=== PATIENT | male | born 1970 | race Caucasian/White ===

== ENCOUNTER 2018-12-29 12:16 | Emergency (ER) | payer MEDICAID ==
[~2018-12-29] VITALS: Ht 172.7 cm; Wt 79.0 kg
[2018-12-29 12:38] VITALS: BP 122/73
== END 2018-12-29 13:58 | disposition home or self-care (01) ==
LOC: ED 13:55
DX: B35.1 Tinea unguium (principal)
CPT/HCPCS: 99283

== ENCOUNTER 2020-11-25 17:51 | Emergency (ER) | payer MEDICAID, OTHER ==
[~2020-11-25] VITALS: Ht 172.7 cm; Wt 82.1 kg
[2020-11-25] MEDS ORDERED: SODIUM CHLORIDE FLUSH 10ML SYR IVF ONE (18:30)
[2020-11-25] MEDS ORDERED: MORPHINE SULFATE 4 MG/ML, 1ML IVPush PRN (18:30)
[2020-11-25] MEDS ORDERED: ONDANSETRON 2MG/ML, 2ML IVPush ONE (18:30)
[2020-11-25] MEDS ORDERED: ONDANSETRON 2MG/ML, 2ML ONE (18:41)
[2020-11-25] MEDS ORDERED: MORPHINE SULFATE 4 MG/ML, 1ML ONE (18:42)
[2020-11-25 18:49] LABS: BASOPHILS % (AUTO) 1 % (0-1); EOSINOPHILS % (AUTO) 4 % (1-7); LYMPHOCYTES % (AUTO) 32 % (22-44); MEAN CORPUSCULAR HEMOGLOBIN 32.6 pg (27.5-34.5); MEAN CORPUSCULAR HGB CONC 34.4 g/dL (33.2-36.2); MEAN PLATELET VOLUME 6.5 fL (7.4-10.4); MONOCYTES % (AUTO) 8 % (2-9); NEUTROPHILS % (AUTO) 56 % (42-75); PLATELET COUNT 246 x10^3/uL (130-400); RED BLOOD COUNT 4.24 x10^6/uL (4.38-5.82); RED CELL DISTRIBUTION WIDTH 13.7 % (9.4-14.8)
[2020-11-25 18:50] LABS: MD NO
[2020-11-25 19:00] LABS: ANION GAP 4 mmol/L (5-15); CALCIUM 8.4 mg/dL (8.5-10.1); CHLORIDE 105 mmol/L (98-107); CREATININE 0.89 mg/dL (0.7-1.3)
[2020-11-25 19:01] LABS: ALANINE AMINOTRANSFERASE 63 U/L (12-78); ALBUMIN 3.1 g/dL (3.4-5.0)
[2020-11-25 19:05] LABS: ALKALINE PHOSPHATASE 79 U/L (45-117); BILIRUBIN,TOTAL 0.2 mg/dL (0.2-1.0); TOTAL PROTEIN 6.4 g/dL (6.4-8.2); TROPONIN I < 0.015 ng/mL (0.000-0.045)
[2020-11-25 19:27] VITALS: BP 113/62
--- NOTE | 2020-11-25 19:28 | NUR ---
pt states at this time morphine did not help with pain. provider made aware.
[2020-11-25] MEDS ORDERED: KETOROLAC 30 MG/1 ML IVPush ONE (19:30)
[2020-11-25] MEDS ORDERED: KETOROLAC 30 MG/1 ML ONE (19:40)
[2020-11-25] MEDS ORDERED: APIXABAN 5 MG TABLET ONE (19:52)
[2020-11-25] MEDS ORDERED: MAALOX/HYOSCYAMINE/LIDOCAINE 45 ML BTL ONE (19:52)
[2020-11-25] MEDS ORDERED: MAALOX/HYOSCYAMINE/LIDOCAINE 45 ML BTL PO ONE (20:00)
[2020-11-25] MEDS ORDERED: APIXABAN 5 MG TABLET PO ONE (20:00)
== END 2020-11-25 20:27 | disposition home or self-care (01) ==
LOC: ED 20:20
DX: K29.00 Acute gastritis without bleeding (principal); R07.89 Other chest pain; Z76.0 Encounter for issue of repeat prescription; F17.210 Nicotine dependence, cigarettes, uncomplicated; I10 Essential (primary) hypertension; I25.2 Old myocardial infarction
CPT/HCPCS: 36415; 71045; 80053; 83880; 84484; 85025; 93005; 96374; 96375; 99285; 99406; J1885; J2270; J2405